=== PATIENT | male | born 1965 | race Caucasian/White ===

== ENCOUNTER 2020-07-28 09:36 | Emergency (ER) | payer BC, OTHER ==
[~2020-07-28] VITALS: Ht 180.3 cm; Wt 86.2 kg
--- NOTE | 2020-07-28 09:39 | NUR ---
Patient ambulated to bed 4. RN evaluating the patient at bedside.
[2020-07-28 09:43] VITALS: BP 152/68
--- NOTE | 2020-07-28 09:57 | NUR ---
55 Y/O M C/O LOWER BACK PAIN FROM FALL THAT HAPPENED THIS AM 07/28/20. LOWER BACK PAIN, CONSISTENT, WORSENS WITH MOVEMENT 9/10 STABBING SENSATION, DOES NOT RADIATE, NO EDEMA OR REDNESS IN AREA OF PAIN. PT TOOK IBUPROFEN 800MG 45 MIN AROUND 0910 FOR PAIN, NO RELIEF. PMH: DM2, HTN, AND HIGH CHOLESTEROL. NKA. DENIES ANY SOB, CHEST PAIN, FEVERS OR CONTACT WITH ANYONE COVID POSITIVE. PT IS ABLE TO AMBULATE SLOWLY, FLEXS AND EXTENDS UPPER AND LOWER EXTREMTIES WITH PAIN, BUT NO DELAYS. NO NUMBNESS OR LOSS OF SENSATION IN UPPER OR LOWER EXTREMITIES. PT STATES HE DID NOT FALL ON HEAD, NO SYNCOPE, NO HEADACHE.
[2020-07-28] MEDS ORDERED: HYDROcodone/APAP 5/325 MG 1 TAB TAB PO ONE (10:00)
--- NOTE | 2020-07-28 10:04 | NUR ---
Patient taken to CT scan via wheelchair by tech.
--- NOTE | 2020-07-28 10:12 | NUR ---
PT CAME BACK FROM CT. PT NOW IN BED.
--- NOTE | 2020-07-28 11:49 | NUR ---
PT STATES HE IS NO LONGER HAVING PAIN, ONLY DISCOMFORT WHEN HE MOVES.
--- NOTE | 2020-07-28 11:53 | NUR ---
Patient taken to x-ray via wheelchair by tech.
--- NOTE | 2020-07-28 12:06 | NUR ---
PT RETURNED FROM X-RAY AND PLACED IN BED 4.
[2020-07-28 12:41] VITALS: BP 152/68
== END 2020-07-28 12:41 | disposition home or self-care (01) ==
LOC: MED 09:36
DX: S32.008A Other fracture of unspecified lumbar vertebra, initial encounter for closed fracture (principal); X58.XXXA Exposure to other specified factors, initial encounter; Y93.89 Activity, other specified; Y92.89 Other specified places as the place of occurrence of the external cause; Y99.8 Other external cause status
CPT/HCPCS: 72110; 99284

== ENCOUNTER 2022-04-19 23:36 | Observation (INO) | payer OTHER ==
[~2022-04-19] VITALS: Ht 172.7 cm; Wt 86.2 kg
[2022-04-19 23:37] VITALS: BP 141/75
--- NOTE | 2022-04-19 23:44 | NUR ---
PT TO BED 9
[2022-04-19] MEDS ORDERED: ENOXAPARIN 80 MG/0.8 ML SYR SUBQ ONE (23:55)
[2022-04-19] MEDS ORDERED: MORPHINE SULFATE 4 MG/ML SYR IVP ONE (23:55)
[2022-04-19] MEDS ORDERED: NITROGLYCERIN 2% 1 GM PKT TP ONE (23:55)
[2022-04-19] MEDS ORDERED: ASPIRIN 325 MG TAB PO ONE (23:55)
--- NOTE | 2022-04-20 00:04 | NUR ---
Patient A/Ox4, resting comfortably in bed, chest rise and fall symmetrical, no s/s of distress.
[2022-04-20 00:16] LABS: BASOPHILS % (AUTO) 0.6 % (0.0-2.0); EOSINOPHILS # (AUTO) 0.1 K/uL (0-0.4); EOSINOPHILS % (AUTO) 1.5 % (0.0-4.0); HEMATOCRIT 41.7 % (36-52); HEMOGLOBIN 14.3 g/dL (12.0-18.0); LYMPHOCYTES # (AUTO) 2.2 K/uL (2.0-11.5); LYMPHOCYTES % (AUTO) 28.1 % (20.5-51.1); MEAN CORPUSCULAR HEMOGLOBIN 31 pg (27-31); MEAN CORPUSCULAR HGB CONC 34 g/dL (33-37); MEAN CORPUSCULAR VOLUME 91.2 fL (80-94); MONOCYTES # (AUTO) 0.6 K/uL (0.8-1.0); MONOCYTES % (AUTO) 7.5 % (1.7-9.3); NEUTROPHILS # (AUTO) 4.8 K/uL (1.8-7.7); NEUTROPHILS % (AUTO) 62.3 % (42.2-75.2); PLATELET COUNT (AUTO) 186 K/uL (140-450); RED BLOOD CELL COUNT(AUTO) 4.58 MIL/uL (4.20-6.10); RED CELL DISTRIBUTION WIDTH 15.8 % (11.6-13.7); WHITE BLOOD COUNT (AUTO) 7.7 K/uL (4.8-10.8)
[2022-04-20 00:36] LABS: ANION GAP 11.2 (8-16); CARBON DIOXIDE 28.9 mmol/L (21-32); CREATININE 1.1 mg/dL (0.6-1.3); POTASSIUM 3.1 mmol/L (3.5-5.1); TOTAL BILIRUBIN 0.3 mg/dL (0.0-1.0)
[2022-04-20] MEDS ORDERED: POTASSIUM CHLORIDE 10 MEQ TABER PO ONE ×2 (01:15)
--- NOTE | 2022-04-20 01:36 | NUR ---
Patient A/Ox4, resting comfortably in bed, chest rise and fall symmetrical, no s/s of distress.
--- NOTE | 2022-04-20 01:37 | NUR ---
air export logistics manager called and given requested information. air export logistics manager has no further questions.
[2022-04-20] MEDS ORDERED: LISI-487 PO (01:44)
[2022-04-20] MEDS ORDERED: GLIM2TAB PO (01:45)
[2022-04-20] MEDS ORDERED: FENO145T PO (01:48)
[2022-04-20] MEDS ORDERED: TRI48 PO (01:48)
[2022-04-20] MEDS ORDERED: PIOG45TA10 PO (01:48)
[2022-04-20] MEDS ORDERED: MORPHINE SULFATE 4 MG/ML SYR IVP PRN (03:05)
[2022-04-20] MEDS ORDERED: HYDROcodone/APAP 5/325 MG 1 TAB TAB PO PRN (03:05)
[2022-04-20] MEDS ORDERED: KCL 20 MEQ/WATER INJ PREMIX 200 ML IV PRN (03:05)
[2022-04-20] MEDS ORDERED: ONDANSETRON 4 MG/2 ML VIAL IVP PRN (03:05)
[2022-04-20] MEDS ORDERED: POTASSIUM CHLORIDE 10 MEQ TABER PO PRN (03:05)
[2022-04-20] MEDS ORDERED: ACETAMINOPHEN 325 MG TAB PO PRN (03:05)
[2022-04-20] MEDS ORDERED: MAGNESIUM OXIDE 400 MG TAB PO PRN (03:05)
[2022-04-20] MEDS ORDERED: MAG SULF 2000 MG/WATER PREMIX 50 ML IV PRN (03:05)
--- NOTE | 2022-04-20 03:45 | NUR ---
Patient A/Ox4, resting comfortably in bed, chest rise and fall symmetrical, no s/s of distress.
--- NOTE | 2022-04-20 05:10 | NUR ---
Patient A/Ox4, resting comfortably in bed, chest rise and fall symmetrical, no s/s of distress.
--- NOTE | 2022-04-20 07:02 | NUR ---
Patient A/Ox4, resting comfortably in bed, chest rise and fall symmetrical, no s/s of distress.
--- NOTE | 2022-04-20 07:15 | NUR ---
Received report from EDIN Sandoval. Assumed care at this time.
--- NOTE | 2022-04-20 07:15 | NUR ---
Change of shift report given to Mod[place] JESUS. Modesto JESUS verbalized understanding of report, no further questions.
[2022-04-20 08:00] VITALS: BP 108/72
--- NOTE | 2022-04-20 08:05 | NUR ---
RECEIVED REPORT FROM ED RN JSAON FOR CONTINUITY OF CARE. PT IS A&OX4, PREFERS [facility]. PT HAS 18G IV ON RIGHT AC, WHICH IS SALINE LOCKED. PT DENIES PAIN AT THIS TIME. PT IS ON ROOM AIR SATING AT 97%. PTS BED IN LOWEST POSITION, CALL LIGHT WITHIN REACH. WILL CONTINUE TO MONITOR.
--- NOTE | 2022-04-20 08:17 | NUR ---
Patient will be admitted to care of DR LEONG. Admited to TELE. Will go to room 120A. Belongings list completed. Report to EDIN TAPIA.
--- NOTE | 2022-04-20 09:48 | NUR ---
PATIENT HAS BEEN SCREENED AND CATEGORIZED LOW NUTRITION RISK. PATIENT WILL BE SEEN WITHIN 7 DAYS OF ADMISSION. 04/20/22-04/27/[address]
--- NOTE | 2022-04-20 13:00 | NUR ---
PT LEFT AGAINST MEDICAL ADVICE. PT DID NOT WANT TO WAIT FOR THE DOCTOR TO COME & SPEAK WITH HIM. PT SIGNED AMA FORM, PT ID REMOVED, PTS IV REMOVED WITH CANULA INTACT W/MINIMAL BLEEDING.
== END 2022-04-20 13:20 | disposition left against medical advice (07) ==
LOC: MED 23:36 → MTU 04-20 03:02
PROVIDERS: ADMIT Hospitalist; ATTEND Hospitalist
DX: R07.89 Other chest pain (principal); Z20.822 Contact with and (suspected) exposure to COVID-19; I20.9 Angina pectoris, unspecified; I10 Essential (primary) hypertension; E78.5 Hyperlipidemia, unspecified; E11.9 Type 2 diabetes mellitus without complications; E66.9 Obesity, unspecified; Z79.899 Other long term (current) drug therapy
CPT/HCPCS: 36415; 71045; 80053; 83880; 84484; 85025; 85379; 87426; 93005; 96372; 96374; 99291; G0378; J1644; J1650; J2270; Q0092